=== PATIENT | female | born 1970 | race Caucasian/White ===

== ENCOUNTER 2018-07-20 09:44 | Emergency (ER) | payer OTHER, BC ==
[2018-07-20 10:53] LABS: URINE PH (Dip) POC 5.5 (5.0-8.5)
[2018-07-20 10:53] LABS: URINE BLOOD (Dip) POC 3+ (NEGATIVE); URINE KETONES (Dip) POC Negative (NEGATIVE); URINE LEUKOCYTE EST (Dip) POC 1+ (NEGATIVE); URINE NITRITE (Dip) POC Positive (NEGATIVE); URINE TOTAL PROTEIN POC 2+ (NEGATIVE)
[2018-07-20] MEDS: CEFTRIAXONE 1 GM INJ IM (11:06)
[2018-07-20] MEDS: LIDOCAINE 1% (MPF) 5 ML VIAL INJ (11:06)
== END 2018-07-20 11:56 | disposition home or self-care (01) ==
LOC: FTE 09:44
DX: N39.0 Urinary tract infection, site not specified (principal)
CPT/HCPCS: 81003; 81025; 87086; 96372; 99284-25